=== PATIENT | male | born 1990 ===

== ENCOUNTER 2022-03-12 06:54 | Emergency (ER) | payer OTHER ==
[~2022-03-12] VITALS: Ht 170.2 cm; Wt 77.1 kg
[2022-03-12] MEDS ORDERED: MEDROLPACK PO (08:27)
[2022-03-12] MEDS ORDERED: ZYRTEC10 MG PO (08:27)
[2022-03-12] MEDS ORDERED: AZITHROMYCIN500 MG PO (08:27)
== END 2022-03-12 09:27 | disposition home or self-care (01) ==
LOC: ER 06:54
DX: J06.9 Acute upper respiratory infection, unspecified (principal); T78.40XA Allergy, unspecified, initial encounter